=== PATIENT | female | born 1970 ===

== ENCOUNTER 2022-12-18 14:43 | Emergency (ER) | payer OTHER ==
[~2022-12-18] VITALS: Ht 162.6 cm; Wt 68.2 kg
[2022-12-18 15:05] LABS: BASOPHILS # (AUTO) 0.1 X10'3 (0-0.2); BASOPHILS % (AUTO) 0.6 % (0-1); EOSINOPHILS # (AUTO) 0.1 X10'3 (0-0.9); EOSINOPHILS % (AUTO) 0.9 % (0-6); HEMATOCRIT 53.2 % (35.0-45.0); HEMOGLOBIN 17.6 g/dl (12.0-16.0); LYMPHOCYTES # (AUTO) 1.6 X10'3 (1.1-4.8); LYMPHOCYTES % (AUTO) 20.1 % (21-51); MEAN CORPUSCULAR HEMOGLOBIN 29.9 PG (27.0-31.0); MEAN CORPUSCULAR HGB CONC 33.1 g/dL (33.0-36.5); MEAN CORPUSCULAR VOLUME 90.4 FL (78-98); MEAN PLATELET VOLUME 7.5 FL (7.4-10.4); MONOCYTES # (AUTO) 0.4 X10'3 (0-0.9); NEUTROPHILS # (AUTO) 5.9 X10'3 (1.8-7.7); NEUTROPHILS % (AUTO) 73.4 % (42-75); PLATELET COUNT 341 X10'3 (140-440); RED BLOOD COUNT 5.88 X10'6 (4.20-5.60); RED CELL DISTRIBUTION WIDTH 14.1 % (11.5-14.5); WHITE BLOOD COUNT 8.1 X10'3 (4.5-11.0)
[2022-12-18 15:24] LABS: ALANINE AMINOTRANSFERASE 32 U/L (12-78); ALBUMIN 4.9 G/DL (3.4-5.0); ALKALINE PHOSPHATASE 68 IU/L (46-116); ANION GAP 9 (8-16); ASPARTATE AMINO TRANSFERASE 35 U/L (10-37); BILIRUBIN,TOTAL 0.6 MG/DL (0.1-1.0); BLOOD UREA NITROGEN 14 MG/DL (7-18); BUN/CREATININE RATIO 18.7 (10.0-20.0); CALCIUM 10.2 MG/DL (8.5-10.1); CHLORIDE 100 MMOL/L (99-107); CREATININE 0.75 MG/DL (0.40-0.90); GLUCOSE 106 MG/DL (70-104); POTASSIUM 3.9 MMOL/L (3.5-5.1); SODIUM 139 MMOL/L (135-145); TOTAL CARBON DIOXIDE 29.6 MMOL/L (24-32); TOTAL PROTEIN 9.8 G/DL (6.4-8.2); eGFR 81 ML/MIN
[2022-12-18 15:31] LABS: MAGNESIUM 2.3 MG/DL (1.5-2.4)
[2022-12-18 17:11] VITALS: BP 148/95
[2022-12-18 18:08] LABS: D-DIMER < 0.19 MG/L FEU (0-0.50)
== END 2022-12-18 19:24 | disposition home or self-care (01) ==
LOC: ER 14:43
DX: R07.89 Other chest pain (principal); Z72.89 Other problems related to lifestyle; Z88.0 Allergy status to penicillin; Z88.1 Allergy status to other antibiotic agents; Z79.899 Other long term (current) drug therapy
CPT/HCPCS: 36415; 71045; 80053; 83735; 83880; 83970; 84443; 84484; 85025; 85379; 93005; 99285